=== PATIENT | male | born 1960 | race Caucasian/White ===

== ENCOUNTER 2025-02-26 07:08 | Outpatient (CLI) | payer MEDICARE, SELFPAY ==
--- NOTE | ~2025-02-26 | US_ITS ---
EXAMINATION: [facility] DATE: 03/02/2025 6:57 CDT INDICATION: Carotid bruit. Aortic aneurysm screening. TECHNIQUE: Grayscale, color Doppler, and pulsed Doppler images of the aorta and common iliac arteries were obtained. COMPARISON: None. FINDINGS: The proximal aorta measures 2.1 cm greatest sagittal dimension. The mid aorta measures 2 cm greatest sagittal dimension. The distal aorta measures 2 cm greatest sagittal dimension. The iliac arteries ar e not identified. IMPRESSION: 1. Normal caliber aorta without an evidence for aneurysm. Reviewed, dictated and finalized at location A.
--- NOTE | ~2025-02-26 | US_ITS ---
EXAMINATION: US carotid duplex BI DATE: 02/26/2025 07:49 INDICATION: Bilateral carotid bruits TECHNIQUE: Grayscale, color Doppler, and pulsed Doppler images of the cervical carotid arteries were obtained. The degree of vessel stenosis is placed in one of the following categories: normal, <50%, 5 0-69%, >=70% but less than near-occlusion, near-occlusion, or total occlusion. Note that percent sten osis relative to normal distal artery lumen diameter is indirectly measured from velocity measurement s as described by Calvin, et al. Radiology 2003; 229:340-346. Notes: Normal: Peak systolic velocity <125 centimeters/sec and no plaque <50%. Peak systolic velocity <125 ( EDV <40; ICA/CCA PSV ratio <2.0; used these factors only a tandem lesions or low cardiac output or co ntralateral disease) 50-69 %: PSV 125-230 (EDV 40-100; ratio 2-4) >= 70% but less than near occlusion: PSV greater than 230 (EDV > 100; ratio> 4.0) Near Occlusion: PSV that is variable; markedly narrowed lumen Occlusion: Absent flow on color/spectral Doppler and no lumen on sanchez scale. COMPARISON: None. FINDINGS: RIGHT: The right common carotid artery (CCA) peak systolic velocity (PSV) is 96 cm/s. The right internal car otid artery (ICA) PSV is 102 cm/s. The right ICA end-diastolic velocity (EDV) is 39 cm/s. The right I CA/CCA PSV ratio is 1.1. The external carotid artery (ECA) PSV is 125 cm/s. There is antegrade flow i n the right vertebral artery. LEFT: The left CCA PSV is 97 cm/s. The left ICA PSV is 92 cm/s. The left ICA EDV is 32 cm/s. The left ICA/C CA PSV ratio is 0.95. The ECA PSV is 92 cm/s. There is antegrade flow in the left vertebral artery. IMPRESSION: 1. Less than 50% stenosis in the right internal carotid artery by sonographic criteria. 2. Less than 50% stenosis in the left internal carotid artery by sonographic criteria. Reviewed, dictated and finalized at location A. IMPRESSION: 1. Less than 50% stenosis in the right internal carotid artery by sonographic c erica. 2. Less than 50% stenosis in the left internal carotid artery by sonographic ernie [place]en[place].
== END 2025-02-26 07:09 | disposition home or self-care (01) ==
PROVIDERS: PCP Internal Medicine; Visit Provider Internal Medicine
DX: Z13.6 Encounter for screening for cardiovascular disorders (principal); I65.23 Occlusion and stenosis of bilateral carotid arteries
CPT/HCPCS: 76706; 93880